=== PATIENT | male | born 1960 | race Caucasian/White ===

== ENCOUNTER 2016-06-22 08:23 | Inpatient (IN) | payer SELFPAY ==
[~2016-06-22] VITALS: Ht 180.3 cm; Wt 115.8 kg
--- NOTE | ~2016-06-22 | CATH ---
Cardiac Diagnostic Report Demographics Patient Name GARRISON Drew Gender Male Date of 1960 Age 56 year(s) Patient Number [id number] Date of Study 06/23/2016 Visit Number [id number] Room Number G6[address] [place] [id number] Ht 180.34 cm Wt 113.85 kg Referring Renetta Corley MD Primary Physician Physician Performing [place] Secondary Physician Physician Jewels JIMENES Diagnostic [facility] Assisting Physician Physician Jewels JIMENES Interventional Physician Robotype Operator Physician Findings and Conclusions Diagnostic Findings and Conclusion Mild non obstructive CAD, mid LAD with 10% stenosis. Mild Pulmonary HTN, PA 48/27: mean PA 35mmhg RA 17 mmHg RV 45/5 PCWP 22 mmHg Howard CI 2.3 l/min/m2 LVEDP 14 mmHg PA sat 67% and RA sat 63% FA sat 89% Diagnostic Recommendations Continue GDMT. Consider lifevest for low LVEF (based on echocardiogram). Optimize bb/florian i as outpatient. CHF education. Low sodium diet. Rate control + OAC vs Cardioversion for atrial flutter. Reassess LVEF in 90 days to evaluate need for ICD. Thank you Dr. Jackson for allowing us to participate in the care of Mr. Vickers. Procedure Description The patient was brought to the diagnostic cardiac catheterization-EP laboratory in the fasting, non-sedated state. Informed consent was obtained in the written and verbal form after the risks and benefits were explained. The patient had no further questions and agreed to proceed. The planned puncture-incision site(s) were shaved and prepped with ChloraPrep and draped in the usual sterile manner. Conscious sedation, supplemental oxygen, and pain control medications were delivered by a registered nurse under physician guidance. Surface ECG rhythm, blood pressure measurement, and pulse oximetry were monitored throughout the procedure. Arterial access. The access site was infiltrated with lidocaine. The vessel was entered with the Seldinger technique. A sheath was advanced into the vessel and used for catheter placement. Venous access. The access site was infiltrated with 2% lidocaine. The vessel was entered with the Seldinger technique. A sheath was advanced into the vessel and used for catheter placement. Selective left coronary angiography. A catheter was advanced into the left coronary vessel ostium under Fluoroscopic guidance. Contrast was injected by hand. Images were obtained in multiple projections. Selective right coronary angiography. A catheter was advanced into the right coronary vessel ostium under fluoroscopic guidance. Contrast was injected by hand. Images were obtained in multiple projections. Left heart catheterization. A catheter was advanced across the aortic valve to the left ventricle under fluoroscopic guidance. Resting hemodynamics were obtained. Right heart catheterization. A [place] Shanika catheter was successfully advanced to the right atrium, right ventricle, pulmonary artery, and pulmonary artery wedge position under fluoroscopic guidance. Resting hemodynamics were obtained. Measurements included pressures, arterial and venous oxygen saturation samples, and cardiac output. The [place] was removed without difficulty. Arterial and Venous hemostasis was achieved. The patient was transferred to a regular nursing floor via cart accompanied by a nurse. The patient left the laboratory in stable condition. Diagnostic Cath Status: Urgent Procedure Procedure Type Diagnostic procedure:Angiography:, Coronary Angios, Right and Left Heart Cath Indications: Hypertension and Dysrththmia Unspecified. The procedure was explained in detail to the patient. Risks, complications and alternative treatments were reviewed. Written consent was obtained. Medications Reviewed with Patient prior to Procedure. Angiographic Findings Dominance: Left Cardiac Arteries and Lesion Findings LMCA: Normal (0% Stenosis). LAD: Abnormal.diag ok mid lad 10% Lesion on Mid LAD: Mid subsection.10% stenosis . LCx: Normal (0% Stenosis). RCA: Normal (0% Stenosis). Coronary Tree Procedure Data Procedure Date Date: 06/23/2016Start: 08:54 AMEnd: 09:35 AM Entry Locations - Retrograde Percutaneous access was performed through the Right Radial artery (Primary location). A 6 Fr sheath was inserted. Hemostasis was successfully obtained using Mechanical Compression. Closure Comments: r band with 14 cc air by yong. - Antegrade Percutaneous access was performed through the Right Femoral vein. A 6 Fr sheath was inserted. Hemostasis was successfully obtained using Manual Compression. Closure Comments: pressure by yong. Procedure Medications Order and Administration + + + + + !Time !Medication !Dosage !Route ! + + + + + !06/23/2016 08:43 AM !Fentanyl !50 mcg !I.V. ! + + + + + !06/23/2016 08:58 AM !Radial Verapamil !2.5 mg !I.A. ! + + + + + !06/23/2016 09:15 AM !Heparin (ACC_3) !5000 units !I.V. bolus ! + + + + + Devices Used - A5 Fr. BS JR 4 Diag. Catheterwas used for:Right coronary angiography. - A6 Fr. Balloon Wedge Catheterwas used for:Right heart cath. - A5 Fr. BS JL 3.5 Diag. Catheterwas used for:Left coronary angiography. Contrast Material - Isovue 52072 ml Fluoroscopy Time: Diagnostic: 9:36 minutes. Total: 9:36 minutes. Fluoroscopy Dose: Diagnostic: 1290 mGy. Total: 1290 mGy. Estimated Blood Loss: 10 ml. Medical History Allergies - Other:(bee venom). Risk Factors The patient risk factors include:previous vascular surgery;obesity, physical activity, treated hypertension, family history of premature CAD, chronic lung disease, last creatinine: 1 mg/dl, creatinine clearance: 132.83 ml/min and Current/Recent(w/in 1 year) tobacco use. Admission Data Admission Date: 06/22/2016 Admission Time: 09:59 AM Admit Source: Emergency department Insurance Payors: None. Admission Medications + +------+-----+---------+---------+ + + !Medication !Dosage!Times!Last !Last !Administered !Comments ! ! ! !Per !Delivery !Delivery ! ! ! ! ! !Day !Date !Time ! ! ! + +------+-----+---------+---------+ + + !Aspirin (any) ! ! ! ! ! ! ! + +------+-----+---------+---------+ + + !Unfractionated ! ! ! ! ! ! ! !Heparin (any) ! ! ! ! ! ! ! + +------+-----+---------+---------+ + + Clinical Evaluation Leading to Procedure - The patient's CAD presentation was assessed as: Symptom unlikely to be ischemic. - There were no anginal symptoms. Anti-anginal medications were prescribed during the past two weeks. The medications are: Ca channel Blockers and Other. - The patient has been in a state of heart failure within the past two weeks. - The patient's heart failure status was assessed as NYHA Class III, with CHF symptoms of ARTHUR. - The reason for the patient's labeling strategist visit is evaluation of cardiomyopathy and/or evaluation of left ventricular systolic dysfunction. VA Ventriculography Findings LVEDP 11 LV function assessed . Ejection Fraction - 06/22/2016 - Method: Echocardiography. EF%: 25. Snapshots Hemodynamics Condition: Rest O2 Consumption: Estimated: 275.45Heart Rate: 71 bpm Oxygen Saturation +--------+-----+----+ +----+ + !Location!pCO2 !pO2 !% Saturation !Hgb !O2 Content ! +--------+-----+----+ +----+ + !PA ! ! !67 !16.9! ! +--------+-----+----+ +----+ + !RA ! ! !62 !16.9! ! +--------+-----+----+ +----+ + !FA ! ! !89.4 !16.9! ! +--------+-----+----+ +----+ + Pressures (mmHg) +-----+ + !Site !Pressure ! +-----+ + !AO !48/ (35) ! +-----+ + !PA !48 (35) ! +-----+ + !RV !45/5 ,16 ! +-----+ + !RA !20/20 (17) ! +-----+ + !LV !123/5 ,11 ! +-----+ + !LV !132/5 ,16 ! +-----+ + !AO !120/74 (96) ! +-----+ + !LV !120/6 ,14 ! +-----+ + !AO !139/85 (108) ! +-----+ + Cardiac Output +------+ + + + !Method!CO (l/min) !CI (l/min/m2) !SV (ml) ! +------+ + + + !Howard !5.35 !2.3 !75.23 ! +------+ + + + Valve Gradients and Areas + +--------+--------+--------+---------+ + + !Valve !Peak !Mean !Area !Index !Flow !Source ! + +--------+--------+--------+---------+ + + !Aortic !0 !0 ! ! !407.15 !Howard ! + +--------+--------+--------+---------+ + + !Aortic !0 !0 ! ! ! ! ! + +--------+--------+--------+---------+ + + Shunts Oxygen Values O2 Capacity 229.84 O2 Consumption 275.45 Flows (l/min) Qs 4.37 Vascular Resistance (dynes x sec x cm-5) + +-----+-----+----+---+---------+-------+ !CO method !TSVR !SVR !TPVR!PVR!TPVR/TSVR!PVR/SVR! + +-----+-----+----+---+---------+-------+ !Howard !20.2 !17.07!6.55! !0.32 ! ! + +-----+-----+----+---+---------+-------+ !Qp or Qs !24.74!20.9 ! ! ! ! ! + +-----+-----+----+---+---------+-------+ Signatures dtt: JEWELS KAUR dtd: 06/23/16 0854 Physician Self Edit
--- NOTE | ~2016-06-22 | CON ---
PATIENT'S NAME: DINORAH JI [facility] AGE: 56 Y [address] ROOM: [address] [place], [place] [address] LOCATION: GPCU ADMIT DATE: 06/22/2016 Consultation DISCHARGE DATE: FAMILY PHYSICIAN: PHYSICIAN, NO ATTENDING PHYSICIAN: MING GUTIERREZ REFERRING PHYSICIAN: Barney Jackson MD HISTORY OF PRESENT ILLNESS: This is a 56-year-old gentleman, who was admitted to the emergency room after being seen in Urgent Care and found to be in an atrial fibrillation and atrial flutter. He has been complaining of some lightheadedness and diaphoresis and an anxiety sensation that initially started last Tuesday. Yesterday, he was up on a ladder working and felt very lightheaded and broke out in a sweat, so he got down from the ladder and he states he just did not feel well. He did not have any presyncope, but he did go on and go to bed. He remained "anxious" and felt short of breath at rest. He was diaphoretic. He sat in front of an air conditioner. He felt it would not help him feel better. His initial EKG is showing an atrial flutter. He did receive a dose of Cardizem, and his heart rates dropped down into the 60s to 80s. He denies any exertional chest heaviness or tightness. He denies orthopnea, PND, or peripheral edema. He reports that he does snore quite loudly. In fact, when he is in hotels, people request not to sleep beside him because he is snoring so loud. ALLERGIES: NONE TO MEDICATION. MEDICATIONS: Home medications are aspirin. PAST SURGICAL HISTORY: He has never had any surgeries. FAMILY HISTORY: Mother has a history of hypertension. She at the age of 76 after administration of some kind of drug. Father was an alcoholic. He at 46, but he was planning on having open heart surgery just before his . He was also hypertensive. He has eight sisters and two of them have diabetes and one brother, who is alive and well. SOCIAL HISTORY: He is and does not have any children. He does smoke a pack of cigarettes a day and he has done so for 40 years. REVIEW OF SYSTEMS: A 12-point review was done with the changes of: PATIENT'S NAME: DINORAH JI [facility] AGE: 56 Y [address] ROOM: [address] [place] [address] LOCATION: GPCU ADMIT DATE: 06/22/2016 Consultation DISCHARGE DATE: FAMILY PHYSICIAN: PHYSICIAN, NO ATTENDING PHYSICIAN: MING GUTIERREZ Pulmonary: He snores quite loudly. Neurologic: He is complaining of dizziness as well as diaphoresis. The rest is unchanged. PHYSICAL EXAMINATION: VITAL SIGNS: His blood pressure is 150/70 with heart rate of 80. His rhythm is atrial flutter. SKIN: Warm, dry, and pink. HEENT: Pupils are equal, round, and react briskly. NECK: Soft and supple. No lymphadenopathy or thyromegaly. JVD is flat. LUNGS: Lung sounds are clear without evidence of wheezes, rales, or rhonchi. CARDIOVASCULAR: Regular, but irregular and bounding. ABDOMEN: Soft, obese. Bowel sounds are present. EXTREMITIES: Show no peripheral edema. No clubbing. No cyanosis. He does have a little swelling in his right knee which is very arthritic. LABORATORY DATA: BUN is 13, creatinine 1.0, sodium 140, potassium 4.0, CPK 74, CK-MB 1.6, troponin-I 0.04, magnesium is 2.1, ProBNP 176. ASSESSMENT: 1. Atrial flutter. He did receive Cardizem bolus. His heart rates now are under better control. We will add beta-edloris and heparin and check an echocardiogram. 2. Chronic tobacco abuse. We did offer the nicotine patch for possible withdrawal. 3. Obesity. We will further discuss the need for weight loss later on in his hospitalization. The assessment and plan, history of present illness, and physical exam are per Dr. Mandy Jackson. We would like to thank Dr. Aniya Solano for allowing us to participate in the patient's care. BENEDICT CARABALLO APRN FOR MD ANDIE ZARAGOZA/alberto /[id number] d: 06/22/16 2338 t: 07/23/16 0911, CONSULTATION REPORT
--- NOTE | ~2016-06-22 | ER ---
PATIENT'S NAME: DINORAH JI [facility] AGE: 56 Y [address] ROOM: [place] [address] LOCATION: GPCU ADMIT DATE: 06/22/2016 ER/Outpatient Report DISCHARGE DATE: FAMILY PHYSICIAN: PHYSICIAN, NO ATTENDING PHYSICIAN: MING GUTIERREZ ADDENDUM: Dinorah arrived at 0823 hours, left for PCU at 1031 hours. Thirty minutes of critical care was provided with this patient with rhythm interpretation, giving adenosine and Cardizem, discussion with Cardiology as well as the hospitalist, reviewing labs and x-ray. MD RONEY OSBORN/alberto /[id number] d: 06/22/16 1332 t: 06/23/16 1031, OUTPATIENT REPORT
--- NOTE | ~2016-06-22 | HP ---
PATIENT'S NAME: DINORAH JI [facility] AGE: 56 Y [address] ROOM: [address] [address] [facility] AD[facility] DATE: 06/22/2016 History & Physical DISCHARGE DATE: FAMILY PHYSICIAN: PHYSICIAN, NO ATTENDING PHYSICIAN: MING GUTIERREZ DATE OF SERVICE: CHIEF COMPLAINT: Lightheadedness and dizziness. HISTORY OF PRESENT ILLNESS: This is a 56-year-old male with an unknown past medical history who [facility] room of [facility] because of a fast heart rate. History as obtained from the patient. He reports that yesterday afternoon, while he was at work, and after he climbed a ladder, he felt dizzy, lightheaded, diaphoretic, and nauseous. He reports that he almost passed out, but did not. At the same time, he also felt his heart beating really fast. He reported that these symptoms lasted for about 2 minutes. He said the first time these symptoms started was 4 days prior, but not as intense as it did yesterday, and it lasted also for about 2 minutes. The patient does not visit doctors regularly. He cannot remember the last time he visited a healthcare provider. He reported overnight that he also felt hot even though he set the air conditioner to a temperature of about 64 or 65, and so when he woke up this morning, he decided to go into [facility] to get himself checked out, and while he got there, the patient was found to be hypertensive, and heart rate was also found to be in the 130s to 140s, so he was transferred to the emergency room of [facility]. On arrival to the emergency room of [facility], the patient was also found to be tachycardiac with heart rates in the 130s to 140s. He was also hypertensive, systolic was 172/120. The patient was given 6 mg of adenosine to help slow his heart rate down, and his rhythm appeared to be in atrial flutter while in the ER. Cardiology was consulted, and they recommended for the patient to be given Cardizem bolus followed by a drip. The patient denies any shortness of breath during these symptoms. He denied any chest pain. He denies shortness of breath on exertion. Denies orthopnea or paroxysmal nocturnal dyspnea; however, he notes that he snores at night. He has not had an official overnight trend ox or sleep study test done before. Denies cough. Denies abdominal pain or diarrhea. Denies urinary symptoms. Denies headache. Denies numbness or tingling in the arms or legs. Denies any loss of consciousness. REVIEW OF SYSTEMS: The 13 elements of review of systems were asked and as documented in the HPI. The others were negative. PATIENT'S NAME: DINORAH JI [facility] AGE: 56 Y [address] ROOM: [address] [place], [place] [address] [facility] ADMIT DATE: 06/22/2016 History & Physical DISCHARGE DATE: FAMILY PHYSICIAN: PHYSICIAN, NO ATTENDING PHYSICIAN: MING GUTIERREZ PAST MEDICAL HISTORY: Per the patient, none. PAST SURGICAL HISTORY: Includes tonsillectomy and also vasectomy. SOCIAL HISTORY: Smokes 1/2 to 1-1/2 packs per day for the past 40 years. 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 He also drinks alcohol 3 times per week, 2 to 3 cans of 12 ounces of beer. FAMILY HISTORY: Mother at the age of 78. He reports that she from complication of a medication he called [employer], which was used for the treatment of rheumatoid arthritis, which led to her developing numerous strokes and also developed bleeding, which they sued the company for and won. Father at the age of 46, an alcoholic with cardiac problem. PHYSICAL EXAMINATION: VITAL SIGNS: In PCU, temperature 98.2; respiratory rate 18; oxygen saturation 98% on room air; blood pressure 131/108, went up as high as 165/135. GENERAL: A slightly obese, male who is alert, awake, and oriented x3. NEUROLOGIC: Cranial nerves 2 through 12 are intact bilaterally. Sensory is intact bilaterally. Power is 5/5 in all the extremities. HEENT: Normocephalic, atraumatic. Pupils equal, round, and reactive to light bilaterally. Pharynx is normal. Mucosa is moist. Ears: No obvious ear discharge or drainage. NECK: Supple. No area of tenderness. No lymphadenopathy. CARDIOVASCULAR: Normal S1 and S2. Tachycardia which appears a little bit irregular. CHEST: Clear to auscultation bilaterally. ABDOMEN: Soft and nondistended. No area of tenderness. No palpable organomegaly. Positive bowel sounds. EXTREMITIES: There is no joint swelling, erythema, or tenderness. SKIN: No rash or skin breakdown. LABORATORY DATA: Troponin first set less than 0.040. ProBNP 1726. CPK 74. WBC 9.3, H and H 15.9/49.5, and platelets 178. Sodium 140, potassium 4.0, chloride 107, bicarbonate 24, calcium 8.9, creatinine 1.0, BUN 13, and glucose 113. Liver function tests within normal limits. D-dimer 0.49. TSH 2.930. RADIOLOGY: PATIENT'S NAME: DINORAH JI [facility] AGE: 56 Y [address] ROOM: [address] [address] [facility] AD[facility] DATE: 06/22/2016 History & Physical DISCHARGE DATE: FAMILY PHYSICIAN: PHYSICIAN, NO ATTENDING PHYSICIAN: MING GUTIERREZ Chest x-ray: No acute findings. ASSESSMENT AND PLAN: This is a 56-year-old male who comes in with lightheadedness. 1. Presyncope, present on admission. Likely secondary to tachyarrhythmia. We will continue to monitor for symptoms. Right now, appears to have gotten better. Present on admission. 2. Supraventricular tachycardia, probably atrial flutter versus atrial fibrillation, present on admission. Management per Cardiology. The patient has been started on heparin drip. Further management is going to be per Cardiology. 3. Accelerated hypertension. Probably, the patient has undiagnosed hypertension. We will see if the Cardizem drip is going to be able to control the blood pressure. If not, we will discuss with Cardiology as to what other IV blood pressure medications can be given. Present on admission. 4. Morbid obesity. We will recommend some diet restriction. BMI 35. The line of management was explained to the patient whose questions were answered and had no further questions at this time. MD OVIDIO DUEÑAS/alberto /[id number] D: [id number] T: [id number] HISTORY & PHYSICAL
--- NOTE | ~2016-06-22 | DS ---
PATIENT'S NAME: DINORAH JI [facility] AGE: 56 Y [address] ROOM: [address] [address] LOCATION: GPCU ADMIT DATE: 06/22/2016 Discharge Summary DISCHARGE DATE: 06/24/2016 FAMILY PHYSICIAN: PHYSICIAN, NO ATTENDING PHYSICIAN: Jono Ambrocio PRINCIPAL DIAGNOSIS: Atrial flutter with rapid ventricular response. SECONDARY DIAGNOSES: 1. Dilated cardiomyopathy, nonischemic. 2. Long-term anticoagulation. 3. Hypertension. 4. Tobacco abuse. HOSPITAL COURSE: This 56-year-old gentleman was admitted in the hospital with dizziness. He was found to be in RVR, secondary to atrial flutter. He was started on rate-controlling medication with Cardizem as well as therapeutic anticoagulation with heparin. Cardiology was consulted, and he was taken to the lab pack chemist which revealed nonobstructive cardiomyopathy with a low ejection fraction. Echocardiography was also done, which showed an ejection fraction of 25%-30%. Diagnosis of nonischemic cardiomyopathy was made. He was started on beta-deloris as well as AMADOU inhibitor. He was weaned off the Cardizem drip and was started on Coreg. He was also started on Xarelto for long-term anticoagulation to reduce the risk of stroke. He will need to follow up with Dr. Jackson in 2 weeks for possible cardioversion. He does not have a primary care physician, we will hook him with Dr. Ramos in 1 week. DISCHARGE MEDICATIONS: Include: 1. Aspirin 81 mg p.o. once daily. 2. Coreg 6.25 mg p.o. twice daily. 3. Rivaroxaban 20 mg p.o. daily. 4. Glucosamine and chondroitin 2 capsules p.o. every night at bedtime. 5. Losartan 25 mg p.o. q.h.s. DISCHARGE INSTRUCTIONS: Activity: No lifting greater than 20 pounds along with low-sodium diet. Followup: Follow up with Dr. Ramos and Dr. Barney Jackson. Avoid Aleve, ibuprofen, and Advil. ELIZABETH GARRISON MD PATIENT'S NAME: DINORAH JI [facility] AGE: 56 Y [address] ROOM: [address] [address] LOCATION: GPCU ADMIT DATE: 06/22/2016 Discharge Summary DISCHARGE DATE: 06/24/2016 FAMILY PHYSICIAN: ADAN LONG ATTENDING PHYSICIAN: Jono Ambrocio/alberto /[id number] d: 06/25/16 0213 t: 06/25/16 1503, DISCHARGE SUMMARY
--- NOTE | ~2016-06-22 | ECHO ---
Transthoracic Echocardiography Report (TTE) Demographics Patient Name DINORAH JI Date of Study 06/22/2016 Patient Number [id number] Visit Number [id number] Date of 1960 Room Number G6308 Gender Male Number Age 56 year(s) Referring Cristóbal Cerda Russian Language Instructor Ron MOSHER, RDCS Physician MD Do Physician Interpreting Renetta Corley MD Monitoring And Evaluation Advisor Physician Supervising Ordering Renetta Corley MD, MD/MLP Physician Nurse Stress Stitcher Tape Controlled Machine Conclusions Contractility Score Summary Hypokinesis of the Mid anterior, the Mid nathalie-septal, the Mid infero-septal, the Apical septal, the Basal infero-septal and the Basal anterior segments. Summary The estimated left ventricular ejection fraction is 25-30%. Mild concentric left ventricular hypertrophy. Diastolic function indeterminate due to patient's arrhythmia. Mild to moderately reduced right ventricular function. The interatrial septum appears aneurysmal. Informed consent was obtained, bubble study was done, there is no evidence for a PFO or ASD. The right atrium is mild to moderately dilated. Mild tricuspid regurgitation by color Doppler. Dilated IVC with poor inspiratory collapse. Procedure Type of Study TTE procedure:2D Echocardiogram, M-Mode, Doppler , Color Doppler. Procedure Date Date: 06/22/2016 Start: 05:43 PM Study Location: Inpatient Portable Technical Quality: Adequate visualization Indications:Atrial flutter. Appropriate Use Criteria: 9 Patient Status: Routine HR: 61 bpm BP: 132/83 mmHg M-Mode/2D Measurements LV Diastolic Dimension: 4.82 cm LV Systolic Dimension: 4.24 cm LV Septum Diastolic: 1.48 cm LV PW Diastolic: 1.06 cm AO Root Dimension: 3.2 cm Cardiac Output: 4.5 l/min AV Cusp Separation: 2.2 cm RV Diastolic Dimension: 3.11 cm LA volume: 69 ml LVOT: 2.7 cm RV Base: 3.73 cm LVOT VTI: 12.9 cm RV Mid: 3.35 cm LV Stroke volume: 73.82 ml TAPSE: 1.36 cm TDI-S': 12.9 cm/s Doppler Measurements AV Peak Velocity: 0.86 m/s MV Peak E-Wave: 0.86 m/s AV Peak Gradient: 2.94 mmHg MV Peak A-Wave: 0.31 m/s AV Mean Gradient: 2 mmHg MV E/A Ratio: 2.75 LVOT Peak Velocity: 0.68 m/s MV P1/2t: 32 msec TR Gradient:15.05 mmHg PV Peak Velocity: 0.69 m/s Estimated RAP:10 mmHg PV Peak Gradient: 1.92 mmHg Estimated RVSP: 25 mmHg Estimated PASP: 25.05 mmHg Findings Left Ventricle Mild concentric left ventricular hypertrophy. Diastolic function indeterminate due to patient's arrhythmia. Right Ventricle Mild to moderately reduced right ventricular function. Left Atrium Normal left atrial size. Right Atrium The right atrium is mild to moderately dilated. Mitral Valve Trivial mitral regurgitation by color Doppler. Aortic Valve Normal aortic valve structure and function. Tricuspid Valve Mild tricuspid regurgitation by color Doppler. Pulmonic Valve Trivial pulmonic valve regurgitation by color Doppler. Pericardial Effusion No evidence of pericardial effusion. Miscellaneous Dilated IVC with poor inspiratory collapse. Pleural Effusion No evidence of pleural effusion. Contractility Score LV regional wall motion:(0-Non visualized 1-Normal 2-Hypokinesis 3-Akinesis 4-Dyskinesis 5-Aneurysm) Signature dtt: Barney Jackson (cardio) dtd: 06/22/16 1743 Physician Self Edit
--- NOTE | ~2016-06-22 | ER ---
PATIENT'S NAME: DINORAH JI [facility] AGE: 56 Y [address] ROOM: [place] [id number] LOCATION: GPCU ADMIT DATE: 06/22/2016 ER/Outpatient Report DISCHARGE DATE: FAMILY PHYSICIAN: , ADAN ATTENDING PHYSICIAN: MING GUTIERREZ TIME OF ARRIVAL: 0823 hours. TIME SEEN: 0825 hours. IDENTIFICATION: A 56-year-old male. CHIEF COMPLAINT: Hypertension and tachycardia. HISTORY OF PRESENT ILLNESS: The patient was sent over from [facility] where he was seen and found to be tachycardic and hypertensive. He said yesterday, he was up on a ladder when he felt dizzy, like he was going to pass out. He describes no spinning sensation. He had no chest pain or shortness of breath at that time. He sat down and rested, and the symptoms resolved after a couple of minutes. Since that time though, he has had just an anxious feeling. He denies any palpitations or tachycardia. No chest pain, and he has never had these symptoms before. No nausea or vomiting. He was diaphoretic yesterday when this happened. PAST MEDICAL HISTORY: ALLERGIES: NO KNOWN DRUG ALLERGIES. CURRENT MEDICATIONS: Aspirin 81 mg daily. MEDICAL PROBLEMS: Denies. No prior surgeries or hospitalizations. He states that when he was a child, he did have some thyroid abnormalities, but no problems since then. FAMILY HISTORY: Mother had some sort of heart disease, in her 70s secondary to a medication reaction. Father in his 40s secondary to alcoholism, he also had hypertension. PATIENT'S NAME: DINORAH JI [facility] AGE: 56 Y [address] ROOM: [address] [place] [id number] LOCATION: GPCU ADMIT DATE: 06/22/2016 ER/Outpatient Report DISCHARGE DATE: FAMILY PHYSICIAN: , ADAN ATTENDING PHYSICIAN: MING GUTIERREZ SOCIAL HISTORY: The patient lives in [place], [place]. He is . 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 Tobacco use: One-half to one pack per day for 40 years. Alcohol use: Two beers per night. Drug use: Marijuana 6 years ago. Cocaine 10 years ago. REVIEW OF SYSTEMS: GENERAL: No fever or chills, but he said he felt real hot yesterday. HEENT: No headache. No blurred vision or double vision. No hearing problems. No nasal drainage. No trouble chewing or swallowing. CARDIOVASCULAR/RESPIRATORY: No chest pain. No shortness of breath. No cough. GASTROINTESTINAL: No abdominal pain, nausea, or vomiting. GENITOURINARY: No dysuria. MUSCULOSKELETAL: No joint pain. SKIN: No rashes. ENDOCRINE: He had a history of thyroid abnormalities as a child which resolved. No history of diabetes. HEMATOLOGIC: No history of bleeding diathesis or blood clots. NEUROLOGIC: No numbness, tingling, or weakness. EXTREMITIES: The patient does have some intermittent swelling of his right knee and takes glucosamine p.r.n. for that. PHYSICAL EXAMINATION: VITAL SIGNS: Weight 116 kg, blood pressure 177/121, pulse 140, respirations 20, temperature 96.6, and saturation is 94%. GENERAL: A 56-year-old male, in no acute distress. A little bit of diaphoresis above his lip. HEENT: Head: Normocephalic, atraumatic. Ears: TMs translucent, both ears. Eyes: Pupils equal and reactive to light and accommodation. Extraocular movements intact. Nose: Mucosa pink. No lesions. Mouth: No lesions. Pharynx: Benign. NECK: Supple. No lymphadenopathy. LUNGS: Clear to auscultation. No rhonchi, wheezes, or rales. HEART: Regular rate and rhythm. No murmur, rub, or gallop. ABDOMEN: Bowel sounds present. Soft and nondistended. Protuberant. No hepatosplenomegaly. No palpable masses. Nontender. SKIN: [place], warm, and dry. No lesions or rashes noted. NEUROLOGIC: The patient is alert and oriented x4. Cranial nerves 2 through 12 grossly intact. Motor strength 5/5 throughout. Sensation is intact to light touch. EXTREMITIES: No lower extremity edema. No calf tenderness. EMERGENCY DEPARTMENT COURSE: PATIENT'S NAME: DINORAH JI [facility] AGE: 56 Y [address] ROOM: [place] [address] LOCATION: GPCU ADMIT DATE: 06/22/2016 ER/Outpatient Report DISCHARGE DATE: FAMILY PHYSICIAN: PHYSICIAN, NO ATTENDING PHYSICIAN: MING GUTIERREZ The patient was placed on a physician specialist. An IV was initiated. [place] EKG at 0834 hours is supraventricular tachycardia at 140 beats per minute. Incomplete right bundle-branch block. No acute ST elevation or depression. On this EKG, it almost gives the appearance of flutter waves in aVL. We repeated the EKG at 0837 hours: Tachycardia. Narrow complex, 139 beats per minute. Again, gives the appearance of flutter waves only in aVL. After risks and side effects of the medication explained to the patient, he was given adenosine 6 mg IV. On the monitor, the patient did slow a little bit to give the appearance of flutter waves. I then talked with our ornamental rail installer, Dr. Jackson. We gave him a Cardizem bolus 15 mg at which time his heart rate did decrease to 83, atrial flutter, right bundle-branch block. No ST elevation or depression. He felt much better after his rate was controlled. Chest x-ray: Mild cardiomegaly, mild increased pulmonary vascularity. Hemoglobin 16.9, hematocrit 49.5, platelets 176, and white count 9.3 with a normal differential. INR 1.07. D-dimer 0.49. TSH 2.930. ProBNP 1726. Chemistry panel is unremarkable. CPK 74, CK-MB 1.6, and troponin-I less than 0.040. IMPRESSION AND PLAN: 1. Atrial flutter with rapid ventricular response. Cardizem bolus given here in the ER. His rate improved to 90. Cardiology consultation was obtained per Dr. Jackson. Rhonda Mederos, nurse practitioner with Dr. Jackson, evaluated the patient in the emergency room. He will be admitted to U tele observation per Dr. Gutierrez, hospitalist. 2. Obesity. 3. Hypertension. The patient's blood pressure improved from 177/121 to 136/88. 4. Tobacco abuse. TAZ SERVIN MD CAR/modl /[id number] d: 06/22/16 1505 t: 06/23/16 1029, OUTPATIENT REPORT
[2016-06-22 08:48] LABS: BASOPHIL # 0.1 K/uL (0.0-0.2); BASOPHIL % 0.6 %; EOSINOPHIL # 0.2 K/uL (0.0-0.5); EOSINOPHIL % 1.8 %; HEMATOCRIT 49.5 % (37.0-53.0); HEMOGLOBIN 16.9 g/dL (12.0-17.0); IMMATURE GRANULOCYTE % 0.1 %; LYMPHOCYTE # 3.7 K/uL (0.8-4.0); LYMPHOCYTE % 39.8 %; MCHC 34.1 gm/dL (32.0-36.5); MCV 93.8 fl (83.0-98.0); MONOCYTE # 0.9 K/uL (0.0-1.0); MONOCYTE % 10.1 %; MPV 8.8 fl (9.4-12.4); NEUTROPHIL # (ANC) 4.4 K/uL (1.4-9.0); NEUTROPHIL % 47.6 %; NRBC % 0 /100WBC (0-0.00); PLATELET COUNT 176 K/uL (150-450); RBC 5.28 M/uL (4.00-6.00); WBC 9.3 K/uL (4.0-11.0)
[2016-06-22 09:01] LABS: INR - (THERAPEUTIC) 1.07 (0.92-1.07); PROTIME 11.2 SECONDS (9.8-11.4); PTT 29 SECONDS (25-32)
[2016-06-22 09:03] LABS: ALBUMIN 3.8 gm/dL (3.5-5.0); ALK PHOS 83 IU/L (33-138); ALT 42 IU/L (12-78); AST 32 IU/L (10-40); BLOOD UREA NITROGEN 13 mg/dL (6-24); CALCIUM 8.9 mg/dL (8.5-10.5); CHLORIDE 107 mMol/L (96-110); CO2 24 mMol/L (22-32); CPK 74 IU/L (35-332); ESTIMATED GFR (MDRD EQUATION) > 60; MAGNESIUM 2.1 mg/dL (1.8-2.6); SODIUM 140 mMol/L (135-145); TOTAL BILIRUBIN 0.9 mg/dL (0.0-1.5); TOTAL PROTEIN 7.6 g/dL (6.0-8.4)
[2016-06-22] MEDS ORDERED: ASPIRIN LO-DOSE81 MG PO (11:23)
[2016-06-22] MEDS ORDERED: GLUCOSAMINE &1 EAC1 PO (11:24)
[2016-06-22] MEDS ORDERED: TYLENOL EXTRA500 MG PO (11:24)
[2016-06-24 03:38] LABS: BASOPHIL # 0.1 K/uL (0.0-0.2); BASOPHIL % 0.6 %; EOSINOPHIL # 0.2 K/uL (0.0-0.5); EOSINOPHIL % 2.1 %; HEMATOCRIT 44.7 % (37.0-53.0); HEMOGLOBIN 15.3 g/dL (12.0-17.0); IMMATURE GRANULOCYTE % 0.2 %; LYMPHOCYTE % 33.4 %; MCH 31.9 pg (27.0-34.0); MCHC 34.2 gm/dL (32.0-36.5); MCV 93.3 fl (83.0-98.0); MONOCYTE # 0.9 K/uL (0.0-1.0); MONOCYTE % 10.4 %; NEUTROPHIL # (ANC) 4.8 K/uL (1.4-9.0); NEUTROPHIL % 53.3 %; NRBC % 0 /100WBC (0-0.00); PLATELET COUNT 149 K/uL (150-450); RBC 4.79 M/uL (4.00-6.00); RDW-CV 12.8 % (11.9-14.6); WBC 8.9 K/uL (4.0-11.0)
[2016-06-24 04:02] LABS: ANION GAP 10.6 (10.0-19.0); BLOOD UREA NITROGEN 13 mg/dL (6-24); CALCIUM 8.6 mg/dL (8.5-10.5); CHLORIDE 110 mMol/L (96-110); CO2 23 mMol/L (22-32); CREATININE 0.9 mg/dL (0.6-1.3); ESTIMATED GFR (MDRD EQUATION) > 60; POTASSIUM 3.6 mMol/L (3.7-5.1); SODIUM 140 mMol/L (135-145)
[2016-06-24] MEDS ORDERED: COREG6.25 MG PO ×2 (14:29→14:30)
[2016-06-24] MEDS ORDERED: COREG 3.1253.125 MG PO (14:29)
[2016-06-24] MEDS ORDERED: COZAAR25 MG PO (14:31)
[2016-06-24] MEDS ORDERED: XARELTO20 MG PO (14:32)
[2016-06-24] MEDS ORDERED: "\\\"PREP SPRAY\\\"-TIN4 OZ" (14:33)
[2016-06-24] MEDS ORDERED: NICODERM / HABIT7 MG TRANS (14:34)
[2016-07-23] MEDS ORDERED: MGO400 MG PO (17:23)
[2016-07-23] MEDS ORDERED: LOPRESSOR25 MG PO (17:24)
[2016-07-23] MEDS ORDERED: SOTALOL80 MG PO (17:25)
== END 2016-06-24 15:00 | disposition disaster alternative care site (69) | DRG 287 ==
LOC: GMED 08:23 → GPCU 09:59
PROVIDERS: Family Medicine; Internal Medicine Interventional Cardiology; ADMIT Hospitalist
DX: I42.0 Dilated cardiomyopathy (principal); I27.2 Other secondary pulmonary hypertension; I11.9 Hypertensive heart disease without heart failure; I48.92 Unspecified atrial flutter; I47.1 Supraventricular tachycardia; R55 Syncope and collapse; E66.01 Morbid (severe) obesity due to excess calories; F17.210 Nicotine dependence, cigarettes, uncomplicated; Z79.01 Long term (current) use of anticoagulants; Z68.35 Body mass index [BMI] 35.0-35.9, adult
CPT/HCPCS: C1894; J0153; J1644; J2060; J3010; J7030

== ENCOUNTER → 2016-07-26 | Day surgery (SDC) | payer SELFPAY ==
[~2016-07-26] VITALS: Ht 175.3 cm; Wt 111.1 kg
[~2016-07-26] MED LIST: "\\\"PREP SPRAY\\\"-TIN4 OZ"; ASPIRIN LO-DOSE81 MG PO; COREG 3.1253.125 MG PO; COREG6.25 MG PO; COZAAR25 MG PO; GLUCOSAMINE &1 EAC1 PO; LOPRESSOR25 MG PO; MGO400 MG PO; NICODERM / HABIT7 MG TRANS; SOTALOL80 MG PO; TYLENOL EXTRA500 MG PO; XARELTO20 MG PO
--- NOTE | ~2016-07-26 | OR ---
PATIENT'S NAME: DINORAH VICKERS [facility] AGE: 56 Y [address] ROOM: [place] [address] LOCATION: [facility] ADMIT DATE: 07/26/2016 OR/Procedure Report DISCHARGE DATE: FAMILY PHYSICIAN: PHYSICIAN, ADAN ATTENDING PHYSICIAN: Karl Garcia SURGEON: Karl Garcia MD SYNTHETIC CHEMIST: DATE OF PROCEDURE: 07/26/2016 PRIMARY CARE: MD Richard. INDICATIONS: Atrial fibrillation refractory to antiarrhythmic drug therapy. HISTORY: Mr. Vickers was brought to the preoperative suite in the fasting state. Prepped and draped in the normal manner. Patches placed in the AP dimension. Next, 130 mg of propofol was administered through the nurse furnace converter. Subsequently 200 joules followed by 300 joules of synchronized therapy was delivered with prompt holiness of normal sinus rhythm. 12-lead EKG is pending at the time of this dictation. CONCLUSION: 1. Successful holiness of normal sinus rhythm using DC cardioversion. 2. A 12-lead EKG is pending at the time of this dictation. 3. The patient is recommended to continue antiarrhythmic drug therapy as well as long-term anticoagulation. I would like to thank Dr. Ramos for the opportunity to participate in the care of Mr. Vickers. KARL GARCIA MD DJM/modl /[id number] CC: Kwan Ramos MD d: 08/05/16 1052 t: 08/05/16 1126, OPERATIVE SUMMARY
== END ==
LOC: GPOC 07-23 16:00 → GSDC 08:15 → EDSTATUS 09:00 → GPOC 09:00
DX: I48.1 Persistent atrial fibrillation (principal); I42.0 Dilated cardiomyopathy; E83.42 Hypomagnesemia; F17.210 Nicotine dependence, cigarettes, uncomplicated; I25.10 Atherosclerotic heart disease of native coronary artery without angina pectoris; Z79.82 Long term (current) use of aspirin; Z79.899 Other long term (current) drug therapy; E66.9 Obesity, unspecified; Z79.01 Long term (current) use of anticoagulants; Z68.34 Body mass index [BMI] 34.0-34.9, adult
CPT/HCPCS: J2001; J7030